=== PATIENT | male | born 1970 | race Caucasian/White ===

== ENCOUNTER 2020-10-12 13:50 | Inpatient (IN) | payer SELFPAY ==
[2020-10-12 15:28] LABS: ALT (SGPT) 146 U/L (8-55); AST (SGOT) 86 U/L (5-34); Albumin 3.6 g/dL (3.5-5.0); Alkaline Phosphatase 69 U/L (40-110); Anion Gap 14 mmol/L (10-20); BUN (Urea Nitrogen) 15 mg/dL (8.9-20.6); Bilirubin, Total 0.4 mg/dL (0.2-1.2); Calc. Creatinine Clearance 0 mL/min (70-130); Carbon Dioxide 24 mmol/L (22-29); Chloride 103 mmol/L (98-107); Glucose 104 mg/dL (70-105); Lipase 24 U/L (8-78); Protein, Total 7.6 g/dL (6.0-8.3); Sodium 136 mmol/L (136-145)
[2020-10-12 15:38] LABS: #Eosinphils 0.1 thou/uL (0.0-0.7); #Lymphocytes 1.5 thou/uL (1.20-3.40); #Monocytes 0.6 thou/uL (0.11-0.59); #Neutrophils 5.4 thou/uL (1.40-6.50); %Basophils 0.1 % (0.0-1.0); %Lymphocytes 19.7 % (21.0-51.0); %Monocytes 7.6 % (0.0-10.0); %Neutrophils 71.6 % (42.0-75.0); Hemoglobin 13.7 g/dL (14.0-18.0); Mean Corpuscular HGB CONC 32.4 g/dL (32.0-36.0); Mean Corpuscular Hemoglobin 29.8 pg (27.0-31.0); Mean Corpuscular Volume 91.8 fL (78.0-98.0); Mean Platelet Volume 8.3 fL (7.4-10.4); Platelet Count 185 thou/uL (130-400); RBC Distribution Width 11.8 % (11.5-14.5); White Blood Cell (WBC) Count 7.5 thou/uL (4.8-10.8)
[2020-10-12] MEDS ORDERED: Ondansetron PF 4 MG/2 ML Vial ONE (16:37)
[2020-10-12] MEDS ORDERED: Morphine 4 MG/ML VIAL ONE (16:37)
[2020-10-12 16:46] LABS: Bacteria/HPF None Seen HPF (None Seen); Bilirubin Negative (Negative); Blood, Urine Trace (Negative); Clarity Clear (Clear); Glucose, Urine (Dipstick) Normal (Negative); Ketone, Urine Negative (Negative); Leukocyte Negative Leu/uL (Negative); Nitrite Negative (Negative); Protein, Urine (Dipstick) Negative (Neg-Trace); Squamous Epithelial None Seen HPF (0-3); Urobilinogen Normal mg/dL (Less than 2); WBC/HPF 0-3 HPF (0-3)
[2020-10-12] MEDS ORDERED: Nicotine 21 MG PATCH TD SCH (17:15)
[2020-10-12] MEDS ORDERED: Lorazepam 2 MG/ML VIAL ONE (17:40)
[2020-10-12 18:09] LABS: HBCM Index 0.23 S/CO (0-0.79); HIV (1/2) Antibody/Antigen Non-Reactive (NonReactive); Hep A IgM AB Non-Reactive (NonReactive); Hep A IgM S/CO 0.15 S/CO (0-0.79); Hep B Surf Ag Non-Reactive S/CO (NonReactive); Hepatitis B Core IgM Abs Non-Reactive (NonReactive)
[2020-10-12 18:16] LABS: Hep C IgG Ab Reflex HepC Qnt (NonReactive); Hep C Index 11.08 S/CO (0-0.79)
[2020-10-12 20:05] VITALS: BMI 30.1
[2020-10-12] MEDS ORDERED: Bisacodyl 5 MG TAB PO PRN (21:56)
[2020-10-12] MEDS ORDERED: Acetaminophen 325 MG TAB PO PRN (21:56)
[2020-10-12] MEDS ORDERED: HYDROcodone/Acetaminophen 10/325 mg Tablet PO PRN (21:56)
[2020-10-12] MEDS ORDERED: Senokot S 8.6-50 MG TAB PO PRN (21:56)
[2020-10-12] MEDS ORDERED: Ondansetron PF 4 MG/2 ML Vial IVP PRN (21:56)
[2020-10-12] MEDS ORDERED: HYDROcodone/Acetaminophen 5/325 mg Tablet PO PRN (21:56)
[2020-10-12] MEDS ORDERED: Guaifenesin DM 100-10/5 ML UDCUP PO PRN (21:56)
[2020-10-12] MEDS ORDERED: Ketorolac Tromethamine 30 MG/ML VIAL IVP PRN (22:41)
[2020-10-12] MEDS ORDERED: Morphine 2 MG/ML VIAL SLOW IVP PRN (22:43)
[2020-10-12] MEDS ORDERED: hydrALAZINE 20 MG/ML VIAL SLOW IVP PRN (22:47)
[2020-10-12] MEDS ORDERED: Lorazepam 2 MG/ML VIAL SLOW IVP PRN (22:49)
[2020-10-12] MEDS: Nicotine 14 MG PATCH TD SCH (23:01)
[2020-10-13] MEDS ORDERED: Ketorolac Tromethamine 30 MG/ML VIAL ONE ×2 (06:32→15:24)
[2020-10-13 06:33] LABS: #Eosinphils 0.1 thou/uL (0.0-0.7); #Lymphocytes 1.7 thou/uL (1.20-3.40); #Monocytes 0.7 thou/uL (0.11-0.59); #Neutrophils 5.6 thou/uL (1.40-6.50); %Basophils 0.2 % (0.0-1.0); %Eosinophils 1.2 % (0.0-10.0); %Lymphocytes 20.5 % (21.0-51.0); %Monocytes 8.7 % (0.0-10.0); %Neutrophils 69.4 % (42.0-75.0); Mean Corpuscular Hemoglobin 31.4 pg (27.0-31.0); Mean Corpuscular Volume 92.2 fL (78.0-98.0); Mean Platelet Volume 8.2 fL (7.4-10.4); Platelet Count 169 thou/uL (130-400); RBC Distribution Width 11.8 % (11.5-14.5); Red Blood Cell (RBC) Count 4.16 mill/uL (4.70-6.10); White Blood Cell (WBC) Count 8.1 thou/uL (4.8-10.8)
[2020-10-13 06:51] LABS: Anion Gap 12 mmol/L (10-20); BUN (Urea Nitrogen) 14 mg/dL (8.9-20.6); Calc. Creatinine Clearance 97 mL/min (70-130); Calcium 8.8 mg/dL (7.8-10.44); Carbon Dioxide 23 mmol/L (22-29); Chloride 104 mmol/L (98-107); Glucose 109 mg/dL (70-105); Potassium 4.1 mmol/L (3.5-5.1); Sodium 135 mmol/L (136-145)
[2020-10-13] MEDS ORDERED: Famotidine/PF 20 mg/2ml Vial ONE (09:13)
[2020-10-13] MEDS: Famotidine/PF 20 mg/2ml Vial SLOW IVP SCH ×2 (09:24→21:38)
[2020-10-13] MEDS ORDERED: Morphine 2 MG/ML VIAL ONE (09:27)
[2020-10-13] MEDS ORDERED: Dexamethasone 20 MG/5 ML VIAL ONE (15:24)
[2020-10-13] MEDS ORDERED: Lidocaine 1% PF 5 ML VIAL ONE (15:24)
[2020-10-13] MEDS ORDERED: PROPOFOL 200 MG/20 ML VIAL ONE (15:24)
[2020-10-13] MEDS ORDERED: Succinylcholine 200 MG/10 ml SYRINGE FS ONE (15:24)
[2020-10-13] MEDS ORDERED: Metoclopramide HCl 10 MG/2 ML VIAL ONE (15:24)
[2020-10-13] MEDS ORDERED: Ondansetron PF 4 MG/2 ML Vial ONE (15:24)
[2020-10-13] MEDS ORDERED: Acetaminophen 500 MG TAB PO PRN (16:08)
[2020-10-13] MEDS ORDERED: Oxybutynin 5 MG TAB PO PRN (16:08)
[2020-10-13] MEDS ORDERED: Phenazopyridine HCl 97.5 MG TABLET PO PRN (16:08)
[2020-10-13] MEDS ORDERED: HYDROcodone/Acetaminophen 5/325 mg Tablet PO PRN ×2 (16:08)
[2020-10-13] MEDS ORDERED: diphenhydrAMINE 50 MG/ML VIAL IVP PRN (16:08)
[2020-10-13] MEDS: Nicotine 14 MG PATCH TD SCH (21:38)
[2020-10-13] MEDS: Docusate 100 MG CAP PO SCH (21:38)
[2020-10-14] MEDS: Morphine 4 MG/ML VIAL SLOW IVP PRN ×2 (01:33→06:20)
[2020-10-14] MEDS: Sodium Chloride 0.9% 1,000 ML IV SCH ×3 (05:31→07:52)
[2020-10-14 07:30] LABS: #Basophils 0.1 thou/uL (0.0-0.2); #Lymphocytes 1.3 thou/uL (1.20-3.40); #Monocytes 0.5 thou/uL (0.11-0.59); %Basophils 1.6 % (0.0-1.0); %Eosinophils 0.3 % (0.0-10.0); %Lymphocytes 18.5 % (21.0-51.0); %Neutrophils 72.7 % (42.0-75.0); Hemoglobin 12.2 g/dL (14.0-18.0); Mean Corpuscular HGB CONC 33.2 g/dL (32.0-36.0); Mean Corpuscular Hemoglobin 30.6 pg (27.0-31.0); Mean Platelet Volume 9.2 fL (7.4-10.4); Platelet Count 179 thou/uL (130-400); RBC Distribution Width 11.5 % (11.5-14.5); Red Blood Cell (RBC) Count 3.98 mill/uL (4.70-6.10); White Blood Cell (WBC) Count 6.9 thou/uL (4.8-10.8)
[2020-10-14 07:51] LABS: Anion Gap 10 mmol/L (10-20); BUN (Urea Nitrogen) 15 mg/dL (8.9-20.6); Calc. Creatinine Clearance 117 mL/min (70-130); Calcium 8.8 mg/dL (7.8-10.44); Carbon Dioxide 27 mmol/L (22-29); Chloride 103 mmol/L (98-107); Glucose 137 mg/dL (70-105); Potassium 4.2 mmol/L (3.5-5.1); Sodium 136 mmol/L (136-145)
[2020-10-14] MEDS: Docusate 100 MG CAP PO SCH (08:22)
[2020-10-14] MEDS: Famotidine/PF 20 mg/2ml Vial SLOW IVP SCH (08:22)
[2020-10-14] MEDS ORDERED: Tamsulosin HCl 0.4 MG CAP PO SCH (09:00)
[2020-10-14 12:44] VITALS: BP 153/76; TEMP 98.2
[2020-10-15 12:11] LABS: HCV log10 6.828 (.); Hep C PCR-Quant 6730000 IU/mL (.)
== END 2020-10-14 11:48 | disposition home or self-care (01) | DRG 659 ==
LOC: ERS 13:50 → ERHOLD 18:39 → OBSVTOIN 10-13 17:16 → T4-A 10-13 20:25
PROVIDERS: ADMIT Internal Medicine; ATTEND Internal Medicine
PROC: 0T778DZ Dilation of Left Ureter with Intraluminal Device, Via Natural or Artificial Opening Endoscopic (ICD-10-PCS; principal; 2020-10-13)
PROC: BT1F1ZZ Fluoroscopy of Left Kidney, Ureter and Bladder using Low Osmolar Contrast (ICD-10-PCS; 2020-10-13)
PROC: 8E0ZXY6 Isolation (ICD-10-PCS; 2020-10-13)
DX: N13.2 Hydronephrosis with renal and ureteral calculous obstruction (principal); U07.1 COVID-19; I10 Essential (primary) hypertension; I25.10 Atherosclerotic heart disease of native coronary artery without angina pectoris; N40.1 Benign prostatic hyperplasia with lower urinary tract symptoms; E78.00 Pure hypercholesterolemia, unspecified; G40.909 Epilepsy, unspecified, not intractable, without status epilepticus; Z88.0 Allergy status to penicillin; Z88.1 Allergy status to other antibiotic agents
CPT/HCPCS: 36415; 71045; 74420; 80048; 80074; 83690; 85025; 87086; 87389; 87522; 93005; 96374; 96375; C2617; G0378; J1100; J1885; J2060; J2270; J2405; J2704; J2765; J7050; S0028

== ENCOUNTER 2020-10-27 10:10 | Day surgery (SDC) | payer OTHER ==
[2020-10-26 11:44] VITALS: BMI 29.4
[2020-10-27] MEDS ORDERED: Levofloxacin 500 mg/D5W 100 ml Premix Bag ONE (10:36)
[2020-10-27] MEDS ORDERED: Fentanyl 100 MCG/2 ML VIAL ONE (11:19)
[2020-10-27] MEDS ORDERED: SUGAMMADEX SODIUM 200 MG/2 ML VIAL ONE (11:35)
[2020-10-27] MEDS ORDERED: ePHEDrine 50 MG/ML VIAL ONE (11:39)
[2020-10-27] MEDS ORDERED: Rocuronium Bromide 10 MG/ML (10ML VIAL) ONE (11:39)
[2020-10-27] MEDS ORDERED: Ondansetron PF 4 MG/2 ML Vial ONE (11:39)
[2020-10-27] MEDS ORDERED: PHENYLEPHRINE-NS 100 MCG/ML 10 ML SYRINGE ONE (11:39)
[2020-10-27] MEDS ORDERED: Ketorolac Tromethamine 30 MG/ML VIAL ONE (11:39)
[2020-10-27] MEDS ORDERED: PROPOFOL 200 MG/20 ML VIAL ONE (11:39)
[2020-10-27] MEDS ORDERED: Lidocaine 1% PF 5 ML VIAL ONE (11:39)
[2020-10-27] MEDS ORDERED: Metoclopramide HCl 10 MG/2 ML VIAL ONE (11:39)
[2020-10-27] MEDS ORDERED: Dexamethasone 20 MG/5 ML VIAL ONE (11:39)
== END 2020-10-27 16:30 | disposition home or self-care (01) ==
LOC: SDC 10:10
PROVIDERS: ATTEND Urology
PROC: 0T778DZ Dilation of Left Ureter with Intraluminal Device, Via Natural or Artificial Opening Endoscopic (ICD-10-PCS; principal; 2020-10-27)
PROC: 0TC48ZZ Extirpation of Matter from Left Kidney Pelvis, Via Natural or Artificial Opening Endoscopic (ICD-10-PCS; principal; 2020-10-27)
DX: N20.2 Calculus of kidney with calculus of ureter (principal); N40.0 Benign prostatic hyperplasia without lower urinary tract symptoms; U07.1 COVID-19; B19.20 Unspecified viral hepatitis C without hepatic coma; I10 Essential (primary) hypertension; I25.10 Atherosclerotic heart disease of native coronary artery without angina pectoris; E78.00 Pure hypercholesterolemia, unspecified; G40.909 Epilepsy, unspecified, not intractable, without status epilepticus; F17.210 Nicotine dependence, cigarettes, uncomplicated; Z79.899 Other long term (current) drug therapy; Z88.0 Allergy status to penicillin; Z88.1 Allergy status to other antibiotic agents; Z88.2 Allergy status to sulfonamides; Z91.018 Allergy to other foods
CPT/HCPCS: 74018; 74420; 82365; 88300; C2617; J1100; J1885; J1956; J2405; J2704; J2765; J3010; J3490

== ENCOUNTER 2022-02-07 23:41 | Inpatient (IN) | payer SELFPAY ==
[2022-02-08] MEDS ORDERED: Cefepime 2 GM VIAL ONE (01:28)
[2022-02-08] MEDS ORDERED: Morphine 4 MG/ML VIAL ONE (01:50)
[2022-02-08] MEDS ORDERED: Ketorolac Tromethamine 30 MG/ML VIAL ONE (01:50)
[2022-02-08] MEDS ORDERED: Ondansetron PF 4 MG/2 ML Vial ONE ×2 (01:50→06:06)
[2022-02-08 01:54] LABS: Hemoglobin 13.7 g/dL (14.0-18.0); Mean Corpuscular HGB CONC 33.3 g/dL (32.0-36.0); Mean Corpuscular Hemoglobin 30.9 pg (27.0-31.0); Mean Corpuscular Volume 92.6 fl (78.0-98.0); RBC Distribution Width 13.4 % (11.5-14.5); Red Blood Cell (RBC) Count 4.45 mill/uL (4.70-6.10); White Blood Cell (WBC) Count 6.8 10x3/uL (4.8-10.8)
[2022-02-08 02:11] LABS: ALT (SGPT) 84 U/L (8-55); AST (SGOT) 49 U/L (5-34); Albumin 3.7 g/dL (3.5-5.0); Alkaline Phosphatase 65 U/L (40-110); Anion Gap 13 mmol/L (10-20); BUN (Urea Nitrogen) 12 mg/dL (8.4-25.7); Bilirubin, Total 0.5 mg/dL (0.2-1.2); CRP (Inflammatory) 2.43 mg/dL (= or < 0.5); Calc. Creatinine Clearance 0 mL/min (70-130); Calcium 9.2 mg/dL (7.8-10.44); Carbon Dioxide 21 mmol/L (22-29); Chloride 105 mmol/L (98-107); Estimated GFR 101; Globulin 3.3 g/dL (2.4-3.5); Glucose 172 mg/dL (70-105); Potassium 3.8 mmol/L (3.5-5.1); Sodium 135 mmol/L (136-145)
[2022-02-08 02:23] LABS: #Monocytes 0.4 thou/uL (0.11-0.59); #Neutrophils 5.3 thou/uL (1.40-6.50); %Basophils 0.4 % (0.0-1.0); %Eosinophils 0.4 % (0.0-10.0); %Monocytes 6.2 % (0.0-10.0); %Neutrophils 78.1 % (42.0-75.0); Mean Platelet Volume 9.9 fL (7.4-10.4); Platelet Count 118 10x3/uL (130-400); Platelet Morphology Comment Appears Decreased
[2022-02-08 02:47] LABS: SARS-CoV-2 NAA Rapid Test Not Detected (NotDetected)
[2022-02-08 03:31] VITALS: BMI 35.4
[2022-02-08] MEDS: Lactated Ringer's 1,000 ML IV SCH ×2 (04:15→13:00)
[2022-02-08] MEDS ORDERED: Bacitracin Zinc Ointment 30 gm TUBE ONE (04:51)
[2022-02-08] MEDS ORDERED: Neomycin-Polymyxin 1 ML AMP ONE (04:51)
[2022-02-08] MEDS ORDERED: Bupivacaine 0.25% HCL 30 ML VIAL ONE (04:53)
[2022-02-08] MEDS ORDERED: Bupivacaine PF 0.5% 30 ML VIAL ONE (04:53)
[2022-02-08] MEDS ORDERED: Midazolam HCl 2 mg/2 ml Vial ONE (05:35)
[2022-02-08] MEDS ORDERED: Fentanyl 250 MCG/5 ML VIAL ONE (05:35)
[2022-02-08] MEDS ORDERED: Dexamethasone 20 MG/5 ML VIAL ONE (06:06)
[2022-02-08] MEDS ORDERED: Lidocaine 1% PF 5 ML VIAL ONE (06:06)
[2022-02-08] MEDS ORDERED: Succinylcholine Chloride 100 MG/5 ML SYRINGE FS ONE (06:06)
[2022-02-08] MEDS ORDERED: PROPOFOL 200 MG/20 ML VIAL ONE (06:06)
[2022-02-08] MEDS ORDERED: Milk Of Magnesia 30 ML UDCUP PO PRN (07:17)
[2022-02-08] MEDS ORDERED: Bisacodyl 10 MG SUPP PR PRN (07:17)
[2022-02-08] MEDS ORDERED: Acetaminophen 325 MG TAB PO PRN (07:17)
[2022-02-08] MEDS ORDERED: Ondansetron PF 4 MG/2 ML Vial IVP PRN (07:17)
[2022-02-08] MEDS ORDERED: Meperidine HCl/PF 25 MG/ML VIAL IM PRN (07:23)
[2022-02-08] MEDS ORDERED: Ketorolac Tromethamine 30 MG/ML VIAL IVP PRN ×2 (07:23)
[2022-02-08] MEDS ORDERED: Communication Order-Pharmacy FS PRN (07:30)
[2022-02-08] MEDS ORDERED: TETANUS, DIPHTHERIA TOX,ADULT (TDVAX) 0.5 ML VIAL IM ONE (09:00)
[2022-02-08] MEDS ORDERED: Vancomycin 1 GM in Premix Bag 1 BAG IVPB SCH (09:00)
[2022-02-08] MEDS: HYDROcodone/Acetaminophen 5/325 mg Tablet PO PRN (13:27)
[2022-02-08] MEDS: Morphine 4 MG/ML VIAL SLOW IVP PRN ×3 (13:32→21:18)
[2022-02-08] MEDS: VANCOMYCIN 2 GRAM/500 ML BAG 2 GM in Premix Bag 1 BAG IVPB SCH (16:53)
[2022-02-09] MEDS: Morphine 4 MG/ML VIAL SLOW IVP PRN ×3 (02:58→20:32)
[2022-02-09] MEDS: VANCOMYCIN 2 GRAM/500 ML BAG 2 GM in Premix Bag 1 BAG IVPB SCH ×2 (02:59→17:02)
[2022-02-09 15:38] LABS: Vancomycin, Trough 12.1 ug/mL
[2022-02-10] MEDS: Morphine 4 MG/ML VIAL SLOW IVP PRN ×5 (00:33→19:45)
[2022-02-10] MEDS: VANCOMYCIN 2 GRAM/500 ML BAG 2 GM in Premix Bag 1 BAG IVPB SCH ×2 (04:29→15:16)
[2022-02-10] MEDS: levETIRAcetam 500 MG TAB PO SCH (19:45)
[2022-02-11] MEDS: Morphine 4 MG/ML VIAL SLOW IVP PRN ×2 (02:57→05:30)
[2022-02-11 05:15] LABS: Vancomycin, Trough 14.5 ug/mL
[2022-02-11] MEDS: VANCOMYCIN 2 GRAM/500 ML BAG 2 GM in Premix Bag 1 BAG IVPB SCH (05:29)
[2022-02-11] MEDS ORDERED: Neomycin-Polymyxin 1 ML AMP ONE (07:19)
[2022-02-11] MEDS ORDERED: Bacitracin Zinc Ointment 30 gm TUBE ONE (07:19)
[2022-02-11] MEDS ORDERED: Bupivacaine PF 0.5% 30 ML VIAL ONE (07:19)
[2022-02-11] MEDS ORDERED: Morphine 4 MG/ML VIAL ONE (08:10)
[2022-02-11] MEDS ORDERED: PROPOFOL 200 MG/20 ML VIAL ONE (08:25)
[2022-02-11] MEDS ORDERED: Lidocaine 1% PF 5 ML VIAL ONE (08:25)
[2022-02-11] MEDS ORDERED: Ondansetron PF 4 MG/2 ML Vial ONE (08:25)
[2022-02-11] MEDS ORDERED: Amlodipine 5 MG TAB PO SCH (09:00)
[2022-02-11] MEDS ORDERED: Ondansetron HCl/PF 4 MG/2 ML Vial IVP PRN (09:20)
[2022-02-11] MEDS ORDERED: Promethazine HCl 25 MG/ML VIAL IVPB PRN (09:20)
[2022-02-11] MEDS ORDERED: Promethazine HCl 25 MG/ML VIAL IM PRN (09:20)
[2022-02-11] MEDS ORDERED: Fentanyl 100 MCG/2 ML VIAL ONE (09:35)
[2022-02-11] MEDS: levETIRAcetam 500 MG TAB PO SCH (11:39)
[2022-02-11] MEDS: HYDROcodone/Acetaminophen 5/325 mg Tablet PO PRN (13:08)
[2022-02-11] MEDS ORDERED: Clindamycin/D5W 600 MG in Premix Bag 1 BAG IVPB SCH (14:00)
[2022-02-11 15:06] VITALS: BP 172/98; TEMP 98.7
== END 2022-02-11 14:05 | disposition home or self-care (01) | DRG 513 ==
LOC: ERS 23:41 → SURG B 02-08 01:40
PROVIDERS: ADMIT Orthopaedic Surgery Hand Surgery; ATTEND Orthopaedic Surgery Hand Surgery
PROC: 0LB70ZZ Excision of Right Hand Tendon, Open Approach (ICD-10-PCS; principal; 2022-02-08)
PROC: 0LB70ZZ Excision of Right Hand Tendon, Open Approach (ICD-10-PCS; 2022-02-11)
DX: M65.141 Other infective (teno)synovitis, right hand (principal); L02.511 Cutaneous abscess of right hand; Z20.822 Contact with and (suspected) exposure to COVID-19; I10 Essential (primary) hypertension; F17.210 Nicotine dependence, cigarettes, uncomplicated; Z88.0 Allergy status to penicillin; Z88.2 Allergy status to sulfonamides; Z88.8 Allergy status to other drugs, medicaments and biological substances
CPT/HCPCS: 36415; 80053; 80202; 83605; 85025; 85652; 86140; 87040; 87070; 87077; 87186; 87205; 93005; 96374; 96375; 97139; J0692; J1100; J1885; J2250; J2270; J2405; J2704; J3010; J3370; J7030; J7120; S0020; U0002

== ENCOUNTER 2022-05-24 02:34 | Emergency (ER) | payer SELFPAY ==
[2022-05-24 03:12] LABS: Bacteria/HPF None Seen HPF (None Seen); Bilirubin Negative (Negative); Blood, Urine 1+ (Negative); Clarity Turbid (Clear); Glucose, Urine (Dipstick) Normal (Negative); Ketone, Urine Negative (Negative); Leukocyte 500 Leu/uL (Negative); Nitrite Negative (Negative); Protein, Urine (Dipstick) 20 mg/dL (Neg-Trace); Specific Gravity, Urine 1.017 (1.002-1.036); Squamous Epithelial 0-3 HPF (0-3); Urobilinogen Normal mg/dL (Less than 2); WBC/HPF Greater than 50 HPF (0-3)
[2022-05-24] MEDS ORDERED: cefTRIAXone (ROCEPHIN) 500 MG VIAL ONE (03:59)
[2022-05-24] MEDS ORDERED: Azithromycin 250 MG TAB ONE (04:15)
[2022-05-24 15:48] LABS: Chlam.trachomatis by PCR,Urine Not Detected (NotDetected); GC N.gonorrhoeae PCR,UrineVOID DETECTED (NotDetected)
== END 2022-05-24 04:22 | disposition home or self-care (01) ==
LOC: ERS 02:34
DX: A64 Unspecified sexually transmitted disease (principal); N34.2 Other urethritis
CPT/HCPCS: 81003; 81015; 87491; 87591; 96372; 99284; J0696